=== PATIENT | female | born 2000 | race Two or more races ===

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

== ENCOUNTER 2019-02-27 17:34 | Emergency (ER) | payer OTHER ==
[~2019-02-27] VITALS: Ht 160 cm; Wt 99.8 kg
[~2019-02-27 17:34] MED LIST: NAPR-683 PO
[2019-02-27] MEDS ORDERED: IV NORMAL SALINE 1000ML BAG 1,000 ML IV ONE (18:30)
--- NOTE | 2019-02-27 18:34 | PHYS DOC ---
Past Medical History Past Medical History: No Pertinent History Past Surgical History: No Surgical History Alcohol Use: Occasionally Additional Information: pt states she does not drink currently becuase she is Drug Use: None Adult General Chief Complaint Chief Complaint: ABDOMINAL PAIN IN HPI HPI Patient is a 19 year old who is 14 weeks who presents with with cramping since a fall on Wednesday. Patient states she was getting into her car when she slipped and grabbed the car door which hit her in her belly. She felt fine on Wednesday but Wednesday started having some intermittent cramping. The cramping worsened throughout the week and became constant today. Nothing seems to make her cramping better or worse. She has not tried anything at home to relieve the cramping. She did contact her OB who was unable to see her today and told her to report to the emergency department for evaluation. Patient denies any vaginal bleeding or discharge, lightheadedness, dizziness, or shortness of breath.[] Review of Systems Review of Systems Constitutional: Denies fever or chills [] Eyes: Denies change in visual acuity, redness [] HENT: Denies head or ear pain[] Respiratory: Denies cough or shortness of breath [] Cardiovascular: Denies chest pain or palpitations [] GI: Reports abdominal pain, nausea, and vomiting. Denies bloody stools or diarrhea [] : Denies hematuria, dysuria, or vaginal bleeding[] Musculoskeletal: Reports back pain. Denies joint pain [] Integument: Denies rash or skin lesions [] Neurologic: Denies headache, focal weakness or sensory changes [] Complete systems were reviewed and found to be within normal limits, except as documented in this note. Current Medications Current Medications Current Medications Medications (Trade) Dose Ordered Sig/[place] Start Time Stop Time Status Last Admin Dose Admin Sodium Chloride 1,000 ml @ 1,000 mls/hr 1X ONCE 02/27/19 18:30 02/27/19 19:29 DC 02/27/19 19:29 1,000 MLS/HR Allergies Allergies Allergies Coded Allergies Type Severity Reaction Last Updated Verified No Known Drug Allergies 09/20/17 No Physical Exam Physical Exam Constitutional: Well developed, well nourished, no acute distress, non-toxic appearance. [] HENT: Normocephalic, atraumatic, oropharynx moist Eyes: PERRL, EOMI, conjunctiva normal, no discharge. [] Neck: Normal range of motion, no tenderness, supple, no stridor. 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 [] Back: No tenderness, no CVA tenderness. [] Extremities: No tenderness, ROM intact, no edema. [] Neurologic: Alert and oriented X 3, normal motor function, normal sensory function, no focal deficits noted. [] Psychologic: Affect normal, judgement normal, mood normal. [] Current Patient Data Vital Signs Vital Signs Date Time Temp Pulse Resp B/P (MAP) Pulse Ox O2 Delivery O2 Flow Rate FiO2 02/27/19 21:14 88 17 120/59 (79) Room Air 02/27/19 18:10 98.4 98.4 Lab Values Laboratory Tests Test 02/27/19 19:27 02/27/19 20:40 02/27/19 21:35 White Blood Count 11.5 x10^3/uL (4.0-11.0) H Red Blood Count 4.30 x10^6/uL (3.50-5.40) Hemoglobin 12.0 g/dL (12.0-15.5) Hematocrit 35.6 % (36.0-47.0) L Mean Corpuscular Volume 83 fL (79-100) Mean Corpuscular Hemoglobin 28 pg (25-35) Mean Corpuscular Hemoglobin Concent 34 g/dL (31-37) Red Cell Distribution Width 14.9 % (11.5-14.5) H Platelet Count 242 x10^3/uL (140-400) Neutrophils (%) (Auto) 70 % (31-73) Lymphocytes (%) (Auto) 22 % (24-48) L Monocytes (%) (Auto) 6 % (0-9) Eosinophils (%) (Auto) 1 % (0-3) Basophils (%) (Auto) 0 % (0-3) Neutrophils # (Auto) 8.0 x10^3uL (1.8-7.7) H Lymphocytes # (Auto) 2.6 x10^3/uL (1.0-4.8) Monocytes # (Auto) 0.7 x10^3/uL (0.0-1.1) Eosinophils # (Auto) 0.1 x10^3/uL (0.0-0.7) Basophils # (Auto) 0.0 x10^3/uL (0.0-0.2) Maternal Serum HCG Beta Subunit 48381 mIU/mL (0-5) H Sodium Level 135 mmol/L (136-145) L Potassium Level 3.6 mmol/L (3.5-5.1) Chloride Level 101 mmol/L (98-107) Carbon Dioxide Level 22 mmol/L (21-32) Anion Gap 12 (6-14) Blood Urea Nitrogen 8 mg/dL (7-20) Creatinine 0.5 mg/dL (0.6-1.0) L Estimated GFR (Cockcroft-Gault) 157.3 BUN/Creatinine Ratio 16 (6-20) Glucose Level 86 mg/dL (70-99) Calcium Level 8.9 mg/dL (8.5-10.1) Total Bilirubin 0.1 mg/dL (0.2-1.0) L Aspartate Amino Transferase (AST) 10 U/L (15-37) L Alanine Aminotransferase (ALT) 8 U/L (14-59) L Alkaline Phosphatase 98 U/L (46-116) Total Protein 7.5 g/dL (6.4-8.2) Albumin 2.8 g/dL (3.4-5.0) L Albumin/Globulin Ratio 0.6 (1.0-1.7) L Urine Collection Type Unknown Urine Color Yellow Urine Clarity Cloudy Urine pH 7.5 Urine Specific [place] 1.020 Urine Protein Negative mg/dL (NEG-TRACE) Urine Glucose (UA) Negative mg/dL (NEG) Urine Ketones (Stick) Trace mg/dL (NEG) Urine Blood Negative (NEG) Urine Nitrite Negative (NEG) Urine Bilirubin Negative (NEG) Urine Urobilinogen Dipstick 1.0 mg/dL (0.2 mg/dL) Urine Leukocyte Esterase Negative (NEG) Urine RBC Rare /HPF (0-2) Urine WBC Rare /HPF (0-4) Urine Squamous Epithelial Cells Few /LPF Urine Amorphous Sediment Present /HPF Urine Bacteria Few /HPF (0-FEW) Urine Mucus Slight /LPF Chlamydia DNA Probe Negative (Negative) Neisseria gonorrhoeae DNA Probe Negative (Negative) Laboratory Tests 02/27/19 19:27 Laboratory Tests 02/27/19 19:27 Microbiology 02/27/19 Wet Prep - Final, Complete Microbiology 02/27/19 Wet Prep - Final, Complete EKG EKG [] Radiology/Procedures Radiology/Procedures TECHNIQUE: Ultrasound OB limited. COMPARISON: None FINDINGS: The uterus is anteverted and measures 16.7 x 8.6 x 8.7 cm. Placenta lies anterior in location. Single intrauterine seen with gestation age of 15 weeks 0 days. The biparietal diameter measures 2.83 cm corresponding to gestation age of 15 weeks 1 day. Head circumference measures 11.12 cm corresponding to gestation age of 15 weeks 3 days. Abdominal circumference measures 8.68 cm corresponding to gestation age of 15 weeks 0 days. Femoral length measures 1.45 cm corresponding to gestation age of 14 weeks 2 days. Heart rate 163 bpm. Cephalic presentation the time of scanning. Cervix within normal limits. IMPRESSION: Single viable live intrauterine with estimated gestation age of 15 weeks 0 days and due date of 08/21/2019. Electronically signed by: Khurram Sinha DO (02/27/2019 8:22 PM) [facility] [] Course & Med Decision Making Course & Med Decision Making 19-year-old female who is 14 weeks presenting with intermittent cramping. Patient slipped and fell on Wednesday on shining in her car. Cramping has become more constant since Wednesday. Pertinent Labs and Imaging studies reviewed. Transvaginal ultrasound demonstrated intrauterine . Pelvic exam was unremarkable. Chlamydia/Gonorrhea cultures pending. Patient declined empiric antibiotics. Patient stable for discharge with outpatient follow-up with PCP/ OB. Discussed findings and plan with patient and family, who acknowledge understanding and agreement. (See chart for details) [] Dragon Disclaimer Dragon Disclaimer This electronic medical record was generated, in whole or in part, using a voice recognition dictation system. Departure Departure Impression: Primary Impression: Pelvic pain during Disposition: HOME, SELF-CARE Condition: STABLE Referrals: NO PCP (PCP) Patient Instructions: Abdominal Pain During , [id number] Additional Instructions: Stay hydrated. Use over the counter Tylenol for pain or discomfort. SAURABH CARLSON DO Feb 27, 2019 18:34
[2019-02-27 19:32] LABS: BASO % 0 % (0-3); EOS # 0.1 x10^3/uL (0.0-0.7); EOS % 1 % (0-3); HEMATOCRIT 35.6 % (36.0-47.0); LYMPH # 2.6 x10^3/uL (1.0-4.8); LYMPH % 22 % (24-48); MEAN CORPUSCULAR HEMOGLOBIN 28 pg (25-35); MEAN CORPUSCULAR HGB CONC 34 g/dL (31-37); MEAN CORPUSCULAR VOLUME 83 fL (79-100); MONO # 0.7 x10^3/uL (0.0-1.1); MONO % 6 % (0-9); NEUT % 70 % (31-73); PLATELET COUNT 242 x10^3/uL (140-400); RED CELL DISTRIBUTION WIDTH 14.9 % (11.5-14.5); WHITE BLOOD COUNT 11.5 x10^3/uL (4.0-11.0)
[2019-02-27 19:43] LABS: CALCIUM 8.9 mg/dL (8.5-10.1); CREATININE 0.5 mg/dL (0.6-1.0); GFR 157.3; POTASSIUM 3.6 mmol/L (3.5-5.1)
[2019-02-27 19:49] LABS: ALBUMIN 2.8 g/dL (3.4-5.0); ALBUMIN/GLOBULIN RATIO 0.6 (1.0-1.7); TOTAL BILIRUBIN 0.1 mg/dL (0.2-1.0); TOTAL PROTEIN 7.5 g/dL (6.4-8.2)
--- NOTE | 2019-02-27 20:25 | RAD ---
Indication:cramping after fall TECHNIQUE: Ultrasound OB limited. COMPARISON: None FINDINGS: The uterus is anteverted and measures 16.7 x 8.6 x 8.7 cm. Placenta lies anterior in location. Single intrauterine seen with gestation age of 15 weeks 0 days. The biparietal diameter measures 2.83 cm corresponding to gestation age of 15 weeks 1 day. Head circumference measures 11.12 cm corresponding to gestation age of 15 weeks 3 days. Abdominal circumference measures 8.68 cm corresponding to gestation age of 15 weeks 0 days. Femoral length measures 1.45 cm corresponding to gestation age of 14 weeks 2 days. Heart rate 163 bpm. Cephalic presentation the time of scanning. Cervix within normal limits. IMPRESSION: Single viable live intrauterine with estimated gestation age of 15 weeks 0 days and due date of 08/21/2019. Electronically signed by: Khurram Sinha DO (02/27/2019 8:22 PM) [facility]
[2019-02-27 20:54] LABS: BILIRUBIN,URINE NEGATIVE (NEG); CLARITY,URINE CLOUDY; COLOR,URINE YELLOW; NITRITE,URINE NEGATIVE (NEG); PH,URINE 7.5; PROTEIN,URINE NEGATIVE (NEG-TRACE)
[2019-02-27 20:59] LABS: AMORPHOUS SEDIMENT,UR PRESENT /HPF; BACTERIA,URINE FEW /HPF (0-FEW); RBC,URINE RARE /HPF (0-2); SQUAMOUS EPITHELIAL CELL,UR FEW /LPF; WBC,URINE RARE /HPF (0-4)
[2019-02-27 21:14] VITALS: BP 120/59
[2019-03-01 14:14] LABS: GC PROBE Negative (Negative)
== END 2019-02-27 22:51 | disposition home or self-care (01) ==
LOC: ER 17:37
DX: O21.8 Other vomiting complicating pregnancy (principal); R10.2 Pelvic and perineal pain; M54.9 Dorsalgia, unspecified; R10.12 Left upper quadrant pain; R10.32 Left lower quadrant pain; Z3A.15 15 weeks gestation of pregnancy; W01.198A Fall on same level from slipping, tripping and stumbling with subsequent striking against other object, initial encounter; Y93.89 Activity, other specified; Y92.89 Other specified places as the place of occurrence of the external cause; Y99.8 Other external cause status
CPT/HCPCS: 36415; 76815; 80053; 81001; 84702; 85025; 86901; 87491; 87591; 96360; 99284; J7030; Q0111

== ENCOUNTER 2019-04-02 00:53 | Observation (INO) | payer OTHER ==
[2019-04-02] MEDS ORDERED: ONDANSETRON PF 4 MG/2 ML VIAL. IV PRN (01:00)
[2019-04-02] MEDS ORDERED: CITRIC ACID/SODIUM CITRATE 30 ML SOLUTION. PO ONE (01:00)
[2019-04-02] MEDS ORDERED: MAG HYDROX/ALUMINUM HYD/SIMETH 30 ML ORAL.SUSP PO PRN (01:00)
[2019-04-02] MEDS ORDERED: ACETAMINOPHEN 325 MG TABLET. PO PRN (01:00)
[2019-04-02] MEDS ORDERED: IV RINGERS,LACTATED 1000ML 1,000 ML IV PRN (01:00)
[2019-04-02 01:38] LABS: BILIRUBIN,URINE NEGATIVE (NEG); CLARITY,URINE CLEAR; COLOR,URINE YELLOW; NITRITE,URINE NEGATIVE (NEG); PROTEIN,URINE NEGATIVE (NEG-TRACE); UROBILINOGEN,URINE 0.2 mg/dL (0.2 mg/dL)
[2019-04-02 01:45] LABS: BARBITURATES NEG (NEG); BENZODIAZEPINES NEG (NEG); CANNABINOIDS NEG (NEG); COCAINE NEG (NEG); METHADONE NEG (NEG); OPIATES NEG (NEG); PHENCYCLIDINE NEG (NEG)
[2019-04-02 01:47] LABS: AMPHETAMINE/METHAMPHETAMINE NEG (NEG)
[2019-04-02 01:54] LABS: BASO % 0 % (0-3); EOS # 0.1 x10^3/uL (0.0-0.7); EOS % 1 % (0-3); HEMATOCRIT 33.8 % (36.0-47.0); HEMOGLOBIN 11.4 g/dL (12.0-15.5); LYMPH # 2.9 x10^3/uL (1.0-4.8); LYMPH % 23 % (24-48); MEAN CORPUSCULAR HEMOGLOBIN 28 pg (25-35); MEAN CORPUSCULAR HGB CONC 34 g/dL (31-37); MEAN CORPUSCULAR VOLUME 83 fL (79-100); MONO # 0.8 x10^3/uL (0.0-1.1); MONO % 7 % (0-9); NEUT # 8.6 x10^3uL (1.8-7.7); NEUT % 69 % (31-73); PLATELET COUNT 245 x10^3/uL (140-400); RED BLOOD COUNT 4.07 x10^6/uL (3.50-5.40); RED CELL DISTRIBUTION WIDTH 14.8 % (11.5-14.5); WHITE BLOOD COUNT 12.5 x10^3/uL (4.0-11.0)
[2019-04-02 01:57] LABS: BACTERIA,URINE 0 /HPF (0-FEW); RBC,URINE 0 /HPF (0-2); SQUAMOUS EPITHELIAL CELL,UR FEW /LPF; WBC,URINE 0 /HPF (0-4)
[2019-04-02] MEDS ORDERED: hydrOXYzine IM 50 MG/ML VIAL IM ONE (02:00)
[2019-04-02 02:08] LABS: CREATININE 0.6 mg/dL (0.6-1.0); GFR 127.5; POTASSIUM 3.5 mmol/L (3.5-5.1)
[2019-04-02 02:13] LABS: ALBUMIN/GLOBULIN RATIO 0.7 (1.0-1.7); TOTAL BILIRUBIN 0.2 mg/dL (0.2-1.0); TOTAL PROTEIN 7.2 g/dL (6.4-8.2)
[2019-04-02 02:25] LABS: AMYLASE 49 U/L (25-115); LIPASE 109 U/L (73-393)
--- NOTE | 2019-04-02 04:12 | RAD ---
Examination: Ultrasound abdomen limited HISTORY: History of right upper quadrant pain COMPARISON: None available. Findings: Limited examination due to bowel gas and due to patient body habitus. The liver grossly appears unremarkable. The right lobe of the liver measures 16.9 cm. The common bile duct measures 3.6 mm in transverse dimension. Echogenicities identified in the proximal gallbladder could be sludge or small gallstones. The gallbladder is mildly distended. The gallbladder wall thickness measures 2.6 mm. The right kidney measures 10.3 cm in length. The pancreas is not well-visualized. IMPRESSION: 1. Few echogenicities identified in the proximal gallbladder likely sludge or gallstones. Electronically signed by: Kirk Loja MD (04/02/2019 4:09 AM) [id number]
== END 2019-04-02 04:17 | disposition home or self-care (01) ==
LOC: 3 SO LND 00:53
PROVIDERS: ADMIT Obstetrics & Gynecology; ATTEND Obstetrics & Gynecology
DX: O26.892 Other specified pregnancy related conditions, second trimester (principal); R10.11 Right upper quadrant pain; R10.13 Epigastric pain; M54.9 Dorsalgia, unspecified; Z3A.20 20 weeks gestation of pregnancy
CPT/HCPCS: 36415; 76705; 80053; 80307; 81001; 82150; 83690; 85025; 96372; G0378; G0379; J3410

== ENCOUNTER 2019-07-24 14:55 | Inpatient (IN) | payer OTHER ==
[~2019-07-24] VITALS: Ht 160 cm; Wt 103.0 kg
[~2019-07-24 14:55] MED LIST changes: +ACET325T9 PO; +OXYC1TAB15 PO; +PNV1TABL25 PO
[2019-07-24 15:41] LABS: BILIRUBIN,URINE NEGATIVE (NEG); CLARITY,URINE CLEAR; COLOR,URINE YELLOW; NITRITE,URINE NEGATIVE (NEG); PH,URINE 6.5; PROTEIN,URINE NEGATIVE (NEG-TRACE); UROBILINOGEN,URINE 0.2 mg/dL (0.2 mg/dL)
[2019-07-24 15:54] LABS: SQUAMOUS EPITHELIAL CELL,UR MANY /LPF
[2019-07-24 15:55] LABS: BACTERIA,URINE MODERATE /HPF (0-FEW); RBC,URINE 0 /HPF (0-2); WBC,URINE OCC /HPF (0-4)
[2019-07-24] MEDS ORDERED: IV RINGERS,LACTATED 1000ML 1,000 ML IV SCH (15:58)
[2019-07-24] MEDS ORDERED: IV NORMAL SALINE 1000ML BAG 1,000 ML IV SCH (15:58)
[2019-07-24] MEDS ORDERED: fentaNYL PF VIAL 100 MCG/2 ML VIAL IV PRN ×7 (16:00)
[2019-07-24] MEDS ORDERED: TERBUTALINE 1 MG/ML VIAL. SQ PRN (16:00)
[2019-07-24] MEDS ORDERED: TERBUTALINE 1 MG/ML VIAL. IV PRN (16:00)
[2019-07-24] MEDS ORDERED: ONDANSETRON PF 4 MG/2 ML VIAL. IV PRN (16:00)
[2019-07-24] MEDS ORDERED: OXYTOCIN 30 UNIT/500 ML PREMIX 500 ML IV PRN ×3 (16:00)
[2019-07-24] MEDS ORDERED: BUTORPHANOL 2 MG/ML VIAL. IV PRN ×2 (16:00)
[2019-07-24] MEDS ORDERED: 0.9 % SODIUM CHLORIDE 10 ML DISP.SYRIN. IV PRN (16:00)
[2019-07-24] MEDS ORDERED: LIDOCAINE 1% PF 30 ML VIAL. INJ PRN (16:00)
[2019-07-24] MEDS ORDERED: MAG HYDROX/ALUMINUM HYD/SIMETH 30 ML ORAL.SUSP PO PRN (16:00)
[2019-07-24] MEDS ORDERED: CITRIC ACID/SODIUM CITRATE 30 ML SOLUTION. PO PRN (16:00)
[2019-07-24] MEDS ORDERED: ACETAMINOPHEN 325 MG TABLET. PO PRN (16:00)
[2019-07-24] MEDS ORDERED: DOCUSATE SODIUM 283 MG/5 ML ENEMA. PR PRN (16:00)
[2019-07-24] MEDS ORDERED: miSOPROStol 100 MCG TABLET PO PRN (16:00)
[2019-07-24] MEDS ORDERED: ZOLPIDEM 5 MG TABLET. PO PRN (16:00)
[2019-07-24] MEDS ORDERED: NALBUPHINE 10 MG/ML AMPUL. IV PRN ×2 (16:00)
[2019-07-24] MEDS ORDERED: miSOPROStol 25 MCG TABLET VG PRN (16:00)
--- NOTE | 2019-07-24 16:06 | RAD ---
Biophysical profile 07/24/2019 INDICATION: History of gallstones. Comparison Limited obstetric pelvic ultrasound 02/27/2019 TECHNIQUE: Biophysical profile performed with ultrasound. FINDINGS: breathing movements: 2 motion: 2 tone: 2 Amniotic fluid volume: 0. CANDE measured 2.3 cm. BPD: 8.90 cm compatible gestational age of 36 weeks 0 days Head circumference: 31.1 cm compatible gestational age of 34 weeks 5 days Abdominal circumference: 30.09 cm compatible gestational age of 34 weeks 0 days Femur length: 6.88 cm compatible with gestational age of 35 weeks 2 days Estimated gestational age: 35 weeks 0 days HALIMA: 08/28/2019 IMPRESSION: 1. Biophysical profile score of 6/8 secondary to low amniotic fluid volume. 2. Single intrauterine gestation is identified with estimated gestational age of 35 weeks 0 days. Electronically signed by: Chetna Newsome MD (07/24/2019 4:03 PM) [facility]
[2019-07-24] MEDS ORDERED: AMPICILLIN SODIUM 2 GM in IV NORMAL SALINE 100ML 100 ML IV ONE (16:30)
[2019-07-24] MEDS ORDERED: DINOPROSTONE 10 MG SUPP.VAG VG ONE (16:30)
[2019-07-24 16:40] LABS: BASO # 0.1 x10^3/uL (0.0-0.2); BASO % 1 % (0-3); EOS % 0 % (0-3); HEMATOCRIT 32.6 % (36.0-47.0); HEMOGLOBIN 11.2 g/dL (12.0-15.5); LYMPH # 2.3 x10^3/uL (1.0-4.8); LYMPH % 22 % (24-48); MEAN CORPUSCULAR HEMOGLOBIN 28 pg (25-35); MEAN CORPUSCULAR HGB CONC 34 g/dL (31-37); MEAN CORPUSCULAR VOLUME 81 fL (79-100); MONO # 0.8 x10^3/uL (0.0-1.1); MONO % 8 % (0-9); NEUT # 7.4 x10^3/uL (1.8-7.7); NEUT % 70 % (31-73); PLATELET COUNT 232 x10^3/uL (140-400); RED BLOOD COUNT 4.01 x10^6/uL (3.50-5.40); RED CELL DISTRIBUTION WIDTH 14.5 % (11.5-14.5); WHITE BLOOD COUNT 10.6 x10^3/uL (4.0-11.0)
[2019-07-24] MEDS: IV RINGERS,LACTATED 1000ML 1,000 ML IV SCH (16:57)
[2019-07-24 17:30] VITALS: BP 143/74
[2019-07-25] MEDS: IV RINGERS,LACTATED 1000ML 1,000 ML IV SCH ×2 (05:57→19:59)
[2019-07-25] MEDS: AMPICILLIN SODIUM 1 GM in IV NORMAL SALINE 50ML 50 ML IV SCH ×4 (10:42→23:09)
[2019-07-25] MEDS: fentaNYL PF VIAL 100 MCG/2 ML VIAL IV PRN ×2 (14:33→16:06)
[2019-07-25] MEDS ORDERED: ROPIVacaine 0.2% PF 10 ML VIAL. ONE ×2 (19:29→20:00)
[2019-07-25] MEDS ORDERED: L&D EPIDURAL SYRINGE 50 ML ONE ×2 (19:30→23:11)
[2019-07-25] MEDS ORDERED: L&D EPIDURAL 50 ML SYRINGE. ONE (20:00)
[2019-07-25] MEDS ORDERED: IV RINGERS,LACTATED 1000ML 1,000 ML IV SCH (23:23)
[2019-07-25] MEDS ORDERED: ROPIVacaine 0.2% IN 0.9%NACL PF 40 MG/20 ML DISP.SYRIN. EPID PRN (23:30)
[2019-07-25] MEDS ORDERED: NALOXONE 0.4 MG/ML VIAL. IV PRN (23:30)
[2019-07-25] MEDS ORDERED: fentaNYL PF VIAL 100 MCG/2 ML VIAL EPID PRN (23:30)
[2019-07-25] MEDS ORDERED: BUPIVACAINE MPF 0.25% 30 ML VIAL. EPID PRN (23:30)
[2019-07-25] MEDS ORDERED: L&D EPIDURAL SYRINGE 50 ML EPID PRN (23:30)
[2019-07-26] MEDS ORDERED: MMR per PROTOCOL. MC PRN (00:23)
[2019-07-26] MEDS ORDERED: IBUPROFEN 400 MG TABLET. PO PRN (00:30)
[2019-07-26] MEDS ORDERED: HYDROCORTISONE 1% TOPICAL OINTMENT 30GM TUBE. TP PRN (00:30)
[2019-07-26] MEDS ORDERED: 0.9 % SODIUM CHLORIDE 10 ML DISP.SYRIN. IV PRN (00:30)
[2019-07-26] MEDS ORDERED: MAG HYDROX/ALUMINUM HYD/SIMETH 30 ML ORAL.SUSP PO PRN (00:30)
[2019-07-26] MEDS ORDERED: PHENYLEPH/MINERAL OIL/PETROLAT RECTAL OINTMENT TUBE. RC PRN (00:30)
[2019-07-26] MEDS ORDERED: ACETAMINOPHEN 325 MG TABLET. PO PRN (00:30)
[2019-07-26] MEDS ORDERED: diphenhydrAMINE HCL 25 MG CAPSULE PO PRN (00:30)
[2019-07-26] MEDS ORDERED: BENZOCAINE 20% TOPICAL AEROSOL SPRAY 57GM CAN. TP PRN (00:30)
[2019-07-26] MEDS ORDERED: MAGNESIUM HYDROXIDE 2,400 MG/30 ML ORAL.SUSP. PO PRN (00:30)
[2019-07-26] MEDS ORDERED: OXYTOCIN 30 UNIT/500 ML PREMIX 500 ML IV PRN (00:30)
[2019-07-26] MEDS ORDERED: ZOLPIDEM 5 MG TABLET. PO PRN (00:30)
[2019-07-26] MEDS ORDERED: SIMETHICONE 80 MG TAB.CHEW PO PRN (00:30)
--- NOTE | 2019-07-26 00:34 | PDOC1 ---
OB - History Hx of Present Ultrasounds: Normal mid trimester US Abnormal Ultrasound Findings: Gall stones Obstetrical Complications: Other (Oligo, gall stones) Medical Complications: Other (gall stones) Past Family/Social History * Past Medical, Surgical, Family and Obstetric Histories reviewed from chart. Blood Type: A+ Rubella: Immune RPR/VDRL: Negative GBS Status: Unknown HBsAG: Negative OB - Chief Complaint & HPI Date of Admission: Date of Admission: Jul 24, 2019 at 16:12 Chief Complaint/History : 3 Para: 0 EDC: Aug 21, 2019 Reason for admission: induction of labor Indication for induction: other (Oligo) Admission Nurse Assessment Rev: Yes OB - Admission Exam Physical Exam Vitals: VS - Last 72 Hours, by Label Date Time Temp Pulse Resp B/P (MAP) Pulse Ox O2 Delivery O2 Flow Rate FiO2 07/25/19 23:32 18 Room Air 07/25/19 18:03 20 Room Air 07/25/19 16:06 20 07/25/19 14:33 18 Room Air 07/24/19 17:30 97.7 83 20 143/74 (97) 97 Room Air 97.7 HEENT: Normal, Nasal Mucosa Normal, Oropharynx Normal, Moist Membranes, Fontanelles Normal Heart: Regular Rate Lungs: Clear, Equal Abdomen: Gravid Extremities: Clubbing Reflexes: Normal Cervical Dilatation: 1cm Effacement: 0% Membranes: Intact Heart Rate: Normal Accelerations: Accelerations Present Decelerations: No decelerations Short Term Variability: Present Contractions on Admission: >10 Minutes Apart Intensity: Mild Assessment/Plan Assessment/Plan 36 week IUP oligo gall stones MINH RAMÍREZ MD Jul 26, 2019 00:34
--- NOTE | 2019-07-26 00:36 | PDOC ---
VAGINAL DELIVERY DATE DATE: 07/26/19 TIME: 00:35 : 3 EDC: Aug 21, 2019 VAGINAL DELIVERY: VTX VACCUM ASSISTED: No PLACENTA: Spontaneous SEX: Male WEIGHT 5#2oz Nuchal Cord: Yes, Times 1, Loose Amniotic Fluid: Clear PAIN: Epidural EPISIOTOMY: No EXTENSION: Yes EBL 300cc COMPLICATIONS None CONDITION Stable Signs of Intrauterine Infectio: None Shoulder Dystocia: No DIAGNOSIS CSVD MINH RAMÍREZ MD Jul 26, 2019 00:36
[2019-07-26 02:50] VITALS: BP 119/58
[2019-07-26 04:10] VITALS: BP 109/52
[2019-07-26] MEDS ORDERED: IBUPROFEN 400 MG TABLET. PO SCH (06:00)
[2019-07-26] MEDS ORDERED: FERROUS SULFATE 325 MG TABLET. PO SCH (08:00)
[2019-07-26 09:30] VITALS: BP 95/43
--- NOTE | 2019-07-26 13:48 | NUR ---
FACULTY CO-SIGN I have reviewed the documentation by nursing center tutor:Apple Le
[2019-07-26 14:41] VITALS: BP 111/70
[2019-07-26 18:02] VITALS: BP 124/57
[2019-07-26] MEDS: IBUPROFEN 400 MG TABLET. PO PRN (22:06)
[2019-07-26 22:10] VITALS: BP 120/76
[2019-07-27] MEDS: IBUPROFEN 400 MG TABLET. PO PRN ×2 (04:09→16:54)
[2019-07-27 06:26] VITALS: BP 117/72
[2019-07-27 11:39] VITALS: BP 122/68
--- NOTE | 2019-07-27 15:34 | PDOC ---
Provider Note Provider Note Doing well VSS uterus NTTP FU in AM MINH RAMÍREZ MD Jul 27, 2019 15:34
[2019-07-27] MEDS: HYDROcodone/APAP 5/325MG 1 TAB TABLET PO PRN ×2 (18:06→22:24)
[2019-07-27 18:24] VITALS: BP 110/72
[2019-07-27 22:00] VITALS: BP 123/72
[2019-07-28 05:00] VITALS: BP 104/57
--- NOTE | 2019-07-28 08:45 | PATHOLOGY ---
[facility] Accession Number: [id number] . 01 Material submitted: . placenta - PLACENTA AND CORD . 01 Clinical history: . IUP EDC: 08/21/2019 : 3 para: 0 Oligohydramnios Gestational age 36.1 weeks . 02 Diagnosis: 398 gram late placenta of an estimated 36 weeks gestation with attached membranes and umbilical cord: - Retromembranous hematoma. LBQ/07/27/2019 . 02 Comment: There is no evidence of an acute chorioamnionitis or villitis. There are no infarcts. (JPM/db; 07/27/2019) . 02 Electronically signed: . Benedicto Jc MD, Pathologist NPI- [id number] . 01 Gross description: . The specimen is received in formalin labeled "Chelsie Ortiz, placenta" and consists of an oval jaramillo placenta measuring 15.5 x 12.0 x 3.0 cm and weighing 398 g after removal of membranes and umbilical cord. The membranes are pink-blue, thin, and translucent with abundant attached blood clot (13.0 x 6.0 cm). The surface is glistening blue-junior and well vascularized with an eccentrically inserted 3 vessel umbilical cord, 3.3 from edge. The cord measures 47.0 cm in length and up to 1.6 cm in diameter and is pérez to focally green and edematous. The maternal surface shows complete and intact cotyledons. Sectioning reveals a maroon-red and spongy parenchyma with no gross lesions. Nurse'S Assistant sections are submitted as follows: . A1: Periphery and membrane roll A2: Umbilical cord A3-A4: Full-thickness section A5: Membranes with attached clot (SDY; 07/26/2019) SYU/SYU . 02 Pathologist provided ICD-10: O43.893, Z37.0, Z3A.36 . 02 CPT . 370293 Specimen Comment: A courtesy copy of this report has been sent to Specimen Comment: [phone]. Specimen Comment: Report sent to Performed at: 01 [facility] [address], [place] [id number] MD Demarco Felix MD Phone: [phone] Performed at: 02 [facility] [address] [place], [place] [id number] MD Benedicto Jc MD Phone: [phone]
[2019-07-28 11:00] VITALS: BP 123/72
--- NOTE | 2019-07-28 13:11 | PDOC3 ---
OB DISCHARGE SUMMARY DATE OF ADMISSION: 07/26/19 DATE OF DISCHARGE: 07/28/19 REASON FOR ADMISSION: Induction of labor PROCEDURES: Mgmt of Med Complications, Mgmt of OB Complications INTRAPARTUM PROCEDURES: Spontanous Vag Deliv PROCEDURES: None OPERATIONS: None PROBLEM LIST AT DISCHARGE Problems Medical Problems: (1) Gall stones Status: Chronic DISCHARGE DIAGNOSIS: Term Delivered DISCHARGE INFORMATION: Activity, Diet HOSPITAL COURSE Unremarkable CONDITION AT DISCHARGE Stable MINH RAMÍREZ MD Jul 28, 2019 13:10
[2019-07-28] MEDS ORDERED: NAPR-514 PO (13:12)
[2019-07-28] MEDS ORDERED: OXYC1TAB15 PO (13:12)
[2019-07-28 14:09] VITALS: BP 135/88
--- NOTE | 2019-07-28 14:13 | NUR ---
Discharge Discharge instructions given to patient at this time, no questions or concerns noted. To follow up in [address] Pham then 6 weeks at [facility].
== END 2019-07-28 14:13 | disposition home or self-care (01) | DRG 806 ==
LOC: 3 SO LND 14:55 → OBSVTOIN 16:12 → 3 NORTH 07-26 02:50
PROVIDERS: ADMIT Specialist; ATTEND Specialist
PROC: 10E0XZZ Delivery of Products of Conception, External Approach (ICD-10-PCS; principal; 2019-07-26)
PROC: 3E0R3BZ Introduction of Anesthetic Agent into Spinal Canal, Percutaneous Approach (ICD-10-PCS; 2019-07-26)
PROC: 00HU33Z Insertion of Infusion Device into Spinal Canal, Percutaneous Approach (ICD-10-PCS; 2019-07-26)
DX: O69.81X0 Labor and delivery complicated by cord around neck, without compression, not applicable or unspecified (principal); O41.03X0 Oligohydramnios, third trimester, not applicable or unspecified; Z37.0 Single live birth; O99.62 Diseases of the digestive system complicating childbirth; K80.20 Calculus of gallbladder without cholecystitis without obstruction; Z3A.36 36 weeks gestation of pregnancy
CPT/HCPCS: 36415; 76819; 81001; 85014; 85025; 86592; 86850; 86900; 86901; 87086; 88307; G0379; J0290; J2405; J2590; J2795; J3010; J7120; G0378

== ENCOUNTER 2019-08-01 19:37 | Emergency (ER) | payer OTHER ==
[~2019-08-01] VITALS: Ht 160 cm; Wt 103.0 kg
[~2019-08-01 19:37] MED LIST changes: +NAPR-514 PO
[2019-08-01 22:45] VITALS: BP 121/80
[2019-08-01 22:57] LABS: BILIRUBIN,URINE NEGATIVE (NEG); CLARITY,URINE CLEAR; COLOR,URINE YELLOW; NITRITE,URINE NEGATIVE (NEG); PROTEIN,URINE NEGATIVE (NEG-TRACE); UROBILINOGEN,URINE 0.2 mg/dL (0.2 mg/dL)
[2019-08-01 23:04] LABS: AMPHETAMINE/METHAMPHETAMINE NEG (NEG); BARBITURATES NEG (NEG); BENZODIAZEPINES NEG (NEG); CANNABINOIDS NEG (NEG); COCAINE NEG (NEG); METHADONE NEG (NEG); OPIATES NEG (NEG); PHENCYCLIDINE NEG (NEG)
[2019-08-01 23:06] LABS: BACTERIA,URINE MOD /HPF (0-FEW); SQUAMOUS EPITHELIAL CELL,UR OCC /LPF
[2019-08-01] MEDS ORDERED: IV NORMAL SALINE 1000ML BAG 1,000 ML IV ONE (23:30)
[2019-08-01] MEDS ORDERED: fentaNYL PF VIAL 100 MCG/2 ML VIAL IV ONE (23:30)
[2019-08-01 23:40] LABS: BASO # 0.1 x10^3/uL (0.0-0.2); BASO % 1 % (0-3); EOS # 0.3 x10^3/uL (0.0-0.7); EOS % 4 % (0-3); HEMATOCRIT 35.5 % (36.0-47.0); HEMOGLOBIN 12.1 g/dL (12.0-15.5); LYMPH # 2.9 x10^3/uL (1.0-4.8); LYMPH % 34 % (24-48); MEAN CORPUSCULAR HEMOGLOBIN 28 pg (25-35); MEAN CORPUSCULAR HGB CONC 34 g/dL (31-37); MEAN CORPUSCULAR VOLUME 81 fL (79-100); MONO # 0.5 x10^3/uL (0.0-1.1); MONO % 6 % (0-9); NEUT # 4.7 x10^3/uL (1.8-7.7); NEUT % 56 % (31-73); PLATELET COUNT 314 x10^3/uL (140-400); RED BLOOD COUNT 4.36 x10^6/uL (3.50-5.40); RED CELL DISTRIBUTION WIDTH 14.8 % (11.5-14.5); WHITE BLOOD COUNT 8.4 x10^3/uL (4.0-11.0)
[2019-08-02 00:17] LABS: CALCIUM 8.8 mg/dL (8.5-10.1); CREATININE 0.8 mg/dL (0.6-1.0); GFR 91.4; POTASSIUM 3.6 mmol/L (3.5-5.1)
[2019-08-02 00:23] LABS: ALBUMIN 2.8 g/dL (3.4-5.0); ALBUMIN/GLOBULIN RATIO 0.6 (1.0-1.7); TOTAL BILIRUBIN 0.2 mg/dL (0.2-1.0); TOTAL PROTEIN 7.3 g/dL (6.4-8.2)
--- NOTE | 2019-08-02 00:27 | RAD ---
STUDY: Realtime grayscale and color Doppler ultrasonography of the right upper quadrant INDICATION: Right upper quadrant pain. Provided history of gallstones. COMPARISON: Most recently on 06/28/2019. TECHNIQUE: Real-time grayscale and color Doppler sonographic evaluation of the right upper quadrant. Findings: The pancreas is poorly visualized. No discrete abnormality of the adequately evaluated portion. The inferior vena cava is unremarkable. No focal hepatic parenchymal abnormality. Somewhat increased hepatic echotexture is a nonspecific finding but can be seen in the setting of hepatic steatosis. The liver measures approximately 16 cm in length. The gallbladder is contracted. The gallbladder wall measures approximately 3 mm in length. Gallstones are noted. No sonographic Cohen's sign. Normal caliber of the common bile duct measuring 0.4 cm. The right kidney measures 11 cm in length with normal cortical thickness and echogenicity. No hydronephrosis or visualized nephrolithiasis. Impression: 1. Contracted gallbladder with normal wall thickness. Gallstones are present. No sonographic Cohen's sign was observed by the traffic signal technician. No definite findings to suggest acute cholecystitis. 2. Increased hepatic echogenicity as can be seen with hepatic steatosis. Electronically signed by: RANDY CAGLE MD (08/02/2019 12:24 AM) [facility]
[2019-08-02] MEDS ORDERED: cefTRIAXone IV Push 1 GM VIAL. IVP ONE (00:30)
[2019-08-02] MEDS ORDERED: CEPH500T PO (01:13)
[2019-08-02] MEDS ORDERED: HYDR-3164 PO (01:13)
--- NOTE | 2019-08-02 01:13 | PHYS DOC ---
Past Medical History Past Medical History: No Pertinent History Past Surgical History: No Surgical History Alcohol Use: Occasionally Drug Use: None Adult General Chief Complaint Chief Complaint: ABDOMINAL PAIN [facility] HPI Patient is a 19 year old female who presents with a sharp intermittent 8 out of 10 right upper quadrant abdominal pain that has been going on for months during her . She delivered 6 days ago. She states she was informed she has gallstones and they can remove them as soon as she has the baby. She states she had a baby 6 days ago and she is here to have a gallstones removed. Patient denies any nausea, vomiting. Denies any diarrhea. She describes the pain as sharp worse on eating certain foods. She states she had pork today which exacerbated her pain. She follows up with Dr. Gonzales general surgery Review of Systems Review of Systems Constitutional: Denies fever or chills [] Eyes: Denies change in visual acuity, redness, or eye pain [] HENT: Denies nasal congestion or sore throat [] Respiratory: Denies cough or shortness of breath [] Cardiovascular: No additional information not addressed in HPI [] GI: Reports right upper quadrant abdominal pain, denies nausea, vomiting, bloody stools or diarrhea [] : Denies dysuria or hematuria [] Musculoskeletal: Denies back pain or joint pain [] Integument: Denies rash or skin lesions [] Neurologic: Denies headache, focal weakness or sensory changes [] All other systems were reviewed and found to be within normal limits, except as documented in this note. Current Medications Current Medications Current Medications Medications (Trade) Dose Ordered Sig/[place] Start Time Stop Time Status Last Admin Dose Admin Ceftriaxone Sodium (Rocephin) 1 gm 1X ONCE 08/02/19 00:30 08/02/19 00:31 DC 08/02/19 00:55 1 GM Fentanyl Citrate (Fentanyl 2ml Vial) 50 mcg 1X ONCE 08/01/19 23:30 08/01/19 23:31 DC 08/01/19 23:49 50 MCG Sodium Chloride 1,000 ml @ 1,000 mls/hr 1X ONCE 08/01/19 23:30 08/02/19 00:29 DC 08/01/19 23:49 1,000 MLS/HR Allergies Allergies Allergies Coded Allergies Type Severity Reaction Last Updated Verified No Known Drug Allergies 09/20/17 No Physical Exam Physical Exam Constitutional: Well developed, well nourished, no acute distress, non-toxic appearance. [] HENT: Normocephalic, atraumatic, bilateral external ears normal, oropharynx moist, no oral exudates, nose normal. [] Eyes: PERRLA, EOMI, conjunctiva normal, no discharge. [] Neck: Normal range of motion, no tenderness, supple, no stridor. [] Cardiovascular:Heart rate regular rhythm, no murmur [] Lungs & Thorax: Bilateral breath sounds clear to auscultation [] Abdomen: Bowel sounds normal, soft, tenderness on palpation to the right upper quadrant with negative Cohen sign, no right lower quadrant tenderness, no masses, no pulsatile masses. [] Skin: Warm, dry, no erythema, no rash. [] Back: No tenderness, no CVA tenderness. [] Extremities: No tenderness, no cyanosis, no clubbing, ROM intact, no edema. [] Neurologic: Alert and oriented X 3, normal motor function, normal sensory function, no focal deficits noted. [] Psychologic: Affect normal, judgement normal, mood normal. [] Current Patient Data Vital Signs Vital Signs Date Time Temp Pulse Resp B/P (MAP) Pulse Ox O2 Delivery O2 Flow Rate FiO2 08/01/19 23:49 Room Air 08/01/19 22:45 98.5 62 17 121/80 (94) 97 98.5 Lab Values Laboratory Tests Test 08/01/19 19:35 08/01/19 19:50 08/01/19 23:30 08/01/19 23:55 Urine Color Yellow Urine Clarity Clear Urine pH 6.0 Urine Specific [place] 1.020 Urine Protein Negative mg/dL (NEG-TRACE) Urine Glucose (UA) Negative mg/dL (NEG) Urine Ketones (Stick) Negative mg/dL (NEG) Urine Blood Large (NEG) Urine Nitrite Negative (NEG) Urine Bilirubin Negative (NEG) Urine Urobilinogen Dipstick 0.2 mg/dL (0.2 mg/dL) Urine Leukocyte Esterase Moderate (NEG) Urine RBC 3-5 /HPF (0-2) Urine WBC 5-10 /HPF (0-4) Urine Squamous Epithelial Cells Occ /LPF Urine Bacteria Mod /HPF (0-FEW) Urine Mucus Mod /LPF Urine Opiates Screen Neg (NEG) Urine Methadone Screen Neg (NEG) Urine Barbiturates Neg (NEG) Urine Phencyclidine Screen Neg (NEG) Urine Amphetamine/Methamphetamine Neg (NEG) Urine Benzodiazepines Screen Neg (NEG) Urine Cocaine Screen Neg (NEG) Urine Cannabinoids Screen Neg (NEG) Urine Ethyl Alcohol Neg (NEG) POC Urine HCG, Qualitative Hcg negative (Negative) White Blood Count 8.4 x10^3/uL (4.0-11.0) Red Blood Count 4.36 x10^6/uL (3.50-5.40) Hemoglobin 12.1 g/dL (12.0-15.5) Hematocrit 35.5 % (36.0-47.0) L Mean Corpuscular Volume 81 fL (79-100) Mean Corpuscular Hemoglobin 28 pg (25-35) Mean Corpuscular Hemoglobin Concent 34 g/dL (31-37) Red Cell Distribution Width 14.8 % (11.5-14.5) H Platelet Count 314 x10^3/uL (140-400) Neutrophils (%) (Auto) 56 % (31-73) Lymphocytes (%) (Auto) 34 % (24-48) Monocytes (%) (Auto) 6 % (0-9) Eosinophils (%) (Auto) 4 % (0-3) H Basophils (%) (Auto) 1 % (0-3) Neutrophils # (Auto) 4.7 x10^3/uL (1.8-7.7) Lymphocytes # (Auto) 2.9 x10^3/uL (1.0-4.8) Monocytes # (Auto) 0.5 x10^3/uL (0.0-1.1) Eosinophils # (Auto) 0.3 x10^3/uL (0.0-0.7) Basophils # (Auto) 0.1 x10^3/uL (0.0-0.2) Sodium Level 139 mmol/L (136-145) Potassium Level 3.6 mmol/L (3.5-5.1) Chloride Level 104 mmol/L (98-107) Carbon Dioxide Level 25 mmol/L (21-32) Anion Gap 10 (6-14) Blood Urea Nitrogen 17 mg/dL (7-20) Creatinine 0.8 mg/dL (0.6-1.0) Estimated GFR (Cockcroft-Gault) 91.4 BUN/Creatinine Ratio 21 (6-20) H Glucose Level 83 mg/dL (70-99) Calcium Level 8.8 mg/dL (8.5-10.1) Total Bilirubin 0.2 mg/dL (0.2-1.0) Aspartate Amino Transferase (AST) 24 U/L (15-37) Alanine Aminotransferase (ALT) 29 U/L (14-59) Alkaline Phosphatase 138 U/L (46-116) H Total Protein 7.3 g/dL (6.4-8.2) Albumin 2.8 g/dL (3.4-5.0) L Albumin/Globulin Ratio 0.6 (1.0-1.7) L Lipase 132 U/L (73-393) Ethyl Alcohol Level < 10 mg/dL (0-10) Laboratory Tests 08/01/19 23:30 Laboratory Tests 08/01/19 23:55 EKG EKG [] Radiology/Procedures Radiology/Procedures []PROCEDURE: ABDOMEN LTD STUDY: Realtime grayscale and color Doppler ultrasonography of the right upper quadrant INDICATION: Right upper quadrant pain. Provided history of gallstones. COMPARISON: Most recently on 06/28/2019. TECHNIQUE: Real-time grayscale and color Doppler sonographic evaluation of the right upper quadrant. Findings: The pancreas is poorly visualized. No discrete abnormality of the adequately evaluated portion. The inferior vena cava is unremarkable. No focal hepatic parenchymal abnormality. Somewhat increased hepatic echotexture is a nonspecific finding but can be seen in the setting of hepatic steatosis. The liver measures approximately 16 cm in length. The gallbladder is contracted. The gallbladder wall measures approximately 3 mm in length. Gallstones are noted. No sonographic Cohen's sign. Normal caliber of the common bile duct measuring 0.4 cm. The right kidney measures 11 cm in length with normal cortical thickness and echogenicity. No hydronephrosis or visualized nephrolithiasis. Impression: 1. Contracted gallbladder with normal wall thickness. Gallstones are present. No sonographic Cohen's sign was observed by the orthodontic lab technician. No definite findings to suggest acute cholecystitis. 2. Increased hepatic echogenicity as can be seen with hepatic steatosis. Electronically signed by: RANDY CAGLE MD (08/02/2019 12:24 AM) [facility] DICTATED and SIGNED BY: RANDY CAGLE MD DATE: 08/02/19 0024 Course & Med Decision Making Course & Med Decision Making Pertinent Labs and Imaging studies reviewed. (See chart for details) This is a 19-year-old female patient who presents to the ED today with right upper quadrant abdominal pain for months, she was and was informed as soon as she has her baby she can have her gallstones removed. She had a baby 6 days ago and is in the ED today requesting to have her gallstones removed. CBC with normal WBC, CMP with no acute findings. Urine analysis is noted for UTI and given Rocephin IV in the ED, discharged on cephalexin. Right upper quadrant abdominal ultrasound noted for gallstones no cholecystitis. Patient was discharged to home. Instructed to contact the general surgeon and follow-up as an outpatient. Dragon Disclaimer Dragon Disclaimer This electronic medical record was generated, in whole or in part, using a voice recognition dictation system. Departure Departure Impression: Primary Impression: Gall stones Additional Impression: UTI (urinary tract infection) Disposition: HOME, SELF-CARE Condition: STABLE Referrals: UNKNOWN PCP NAME (PCP) PIEDAD GONZALES MD Call your General surgeon and set up a follow-up appointment as soon as you can Patient Instructions: Cholelithiasis, [id number] Additional Instructions: You were seen in the emergency room and noted to have gallstones and urinary tract infection, we put you on antibiotics, ensure you complete them. Call the general surgeon tomorrow and follow-up with him. Take the prescribed pain medicine as needed for pain., Scripts Hydrocodone/Apap 5-325 (NORCO 5-325 TABLET) 1 Each Tablet 1 TAB PO Q6HRS, #12 TAB Prov: FERNANDO WHITE APRN 08/02/19 Cephalexin (CEPHALEXIN) 500 Mg Tablet 1 TAB PO BID, #14 TAB Prov: FERNANDO WHITE APRN 08/02/19 Problem Qualifiers Additional Impression: UTI (urinary tract infection) Urinary tract infection type: site unspecified Hematuria presence: without hematuria Qualified Codes: N39.0 - Urinary tract infection, site not specified FERNANDO WHITE APRN Aug 02, 2019 01:13
== END 2019-08-02 01:34 | disposition home or self-care (01) ==
LOC: ER 19:37
DX: O99.63 Diseases of the digestive system complicating the puerperium (principal); O86.20 Urinary tract infection following delivery, unspecified
CPT/HCPCS: 36415; 76705; 80053; 80307; 81001; 81025; 83690; 85025; 96374; 96375; 99285; G0480; J0696; J3010; J7030

== ENCOUNTER 2019-08-04 09:40 | Day surgery (SDC) | payer OTHER ==
[~2019-08-04] VITALS: Ht 160 cm; Wt 99.8 kg
--- NOTE | 2019-08-04 07:45 | HP ---
ADMIT DATE: 08/04/2019 HISTORY OF PRESENT ILLNESS: The patient has had right upper quadrant pain and proven to have gallstones some months ago. She was and just delivered 5-6 days ago. She was induced because of the gallbladder difficulty. She was known to have gallstones and therefore had been treated for that during the . The patient now comes in having been seen in the Emergency Room for right upper quadrant pain with nausea and vomiting. Had a sonogram done on 08/01/2019 and review of that with the radiologist showed gallstones. No evidence of acute cholecystitis. Past medical history shows normal childhood diseases. No surgeries. She has noted once, 19 years old, delivered 5 days ago. Has no allergies and no other illnesses to her knowledge and takes no takes no medicine. FAMILY HISTORY: Noncontributory. SOCIAL HISTORY: She does not smoke, drink or use drugs or illicit problems and does not have any use of unlawful medicine. REVIEW OF SYSTEMS: Negative except for postprandial and fatty food intolerance with right upper quadrant pain with gas and bloating. She also gets nauseated. PHYSICAL EXAMINATION: GENERAL: Shows a well-developed, normally developed female in no acute distress except for some abdominal discomfort. HEAD, EARS, EYES, NOSE AND THROAT: Grossly normal. Spoke normally. CHEST: Clear bilaterally to auscultation. HEART: Had no murmurs, heaves, friction rubs or thrills and had a rate of 75 beats per minute and it was regular. ABDOMEN: Soft throughout except for the right upper quadrant where there was tenderness to deep palpation. She did not have guarding, but did have tenderness there. There was no rebound. Abdomen was otherwise soft with no organomegaly or other problems. PELVIC: Not done. EXTREMITIES: Grossly normal. IMPRESSION: Chronic cholecystitis and cholelithiasis. PIEDAD GONZALES MD DR: MELISSA/ronak JOB#: [id number] / [id number]
[~2019-08-04 09:40] MED LIST changes: +BUPIVACAINE-EPI 0.5%-1:200000 MPF 30 ML VIAL. INJ ONE; +CEPH500T PO; +HYDR-3164 PO; +HYDROmorphone 2 MG/ML VIAL IV PRN; +LIDOCAINE 1% PF 2 ML VIAL. ID PRN; +MORPHINE SULFATE 2 MG/ML VIAL. IV PRN; +ONDANSETRON PF 4 MG/2 ML VIAL. IV PRN; +PROCHLORPERAZINE 10 MG/2 ML VIAL. IV PRN; +fentaNYL PF VIAL 100 MCG/2 ML VIAL IV PRN
[2019-08-04] MEDS ORDERED: LIDOCAINE 2% PF 5 ML VIAL. ONE (09:54)
[2019-08-04] MEDS ORDERED: PROPOFOL 20 ML IV ONE (09:54)
[2019-08-04] MEDS ORDERED: ROCURONIUM 50 MG/5 ML VIAL. ONE ×2 (09:55→13:03)
[2019-08-04] MEDS ORDERED: fentaNYL PF VIAL 100 MCG/2 ML VIAL ONE ×2 (09:55→12:36)
[2019-08-04] MEDS ORDERED: SUCCINYLCHOLINE 200 MG/10 ML VIAL. ONE (09:55)
[2019-08-04] MEDS ORDERED: SCOPOLAMINE 1.5MG PATCH. TD ONE (10:30)
[2019-08-04] MEDS: IV RINGERS,LACTATED 1000ML 1,000 ML IV SCH ×2 (10:33→15:24)
[2019-08-04 11:08] LABS: BASO % 1 % (0-3); EOS # 0.3 x10^3/uL (0.0-0.7); EOS % 3 % (0-3); HEMATOCRIT 36.6 % (36.0-47.0); HEMOGLOBIN 12.4 g/dL (12.0-15.5); LYMPH # 2.7 x10^3/uL (1.0-4.8); LYMPH % 35 % (24-48); MEAN CORPUSCULAR HEMOGLOBIN 28 pg (25-35); MEAN CORPUSCULAR HGB CONC 34 g/dL (31-37); MEAN CORPUSCULAR VOLUME 82 fL (79-100); MONO # 0.5 x10^3/uL (0.0-1.1); MONO % 6 % (0-9); NEUT # 4.1 x10^3/uL (1.8-7.7); NEUT % 55 % (31-73); PLATELET COUNT 307 x10^3/uL (140-400); RED BLOOD COUNT 4.46 x10^6/uL (3.50-5.40); RED CELL DISTRIBUTION WIDTH 14.6 % (11.5-14.5); WHITE BLOOD COUNT 7.5 x10^3/uL (4.0-11.0)
[2019-08-04] MEDS ORDERED: IOHEXOL 300 MG/ML 50 ML VIAL. ONE (11:09)
[2019-08-04 11:21] LABS: CREATININE 0.7 mg/dL (0.6-1.0); GFR 106.7; POTASSIUM 4.1 mmol/L (3.5-5.1)
[2019-08-04 11:22] LABS: PROTHROMBIN TIME PATIENT 13.2 SEC (11.7-14.0)
[2019-08-04 11:25] LABS: ALBUMIN 3.1 g/dL (3.4-5.0); ALBUMIN/GLOBULIN RATIO 0.7 (1.0-1.7); TOTAL BILIRUBIN 0.2 mg/dL (0.2-1.0); TOTAL PROTEIN 7.8 g/dL (6.4-8.2)
--- NOTE | 2019-08-04 11:35 | PDOC ---
SURGICAL PROGRESS NOTE Subjective Op Note: Surgeon..........................................................Sami Pre and post op diag.......................................chronic cholecystitis and cholelithiasis Anesthesia....................................................general Procedure......................................................lap hui with grams Blood loss.....................................................20cc Fluids...........................................................see anesthesia sheet Drains..........................................................none Condition......................................................satisfactory Vital Signs Vital Signs Date Time Temp Pulse Resp B/P (MAP) Pulse Ox O2 Delivery O2 Flow Rate FiO2 08/04/19 10:18 98.2 58 20 96 98.2 08/04/19 10:15 102/41 Room Air Labs Laboratory Tests Test 08/04/19 10:33 White Blood Count 7.5 x10^3/uL (4.0-11.0) Red Blood Count 4.46 x10^6/uL (3.50-5.40) Hemoglobin 12.4 g/dL (12.0-15.5) Hematocrit 36.6 % (36.0-47.0) Mean Corpuscular Volume 82 fL (79-100) Mean Corpuscular Hemoglobin 28 pg (25-35) Mean Corpuscular Hemoglobin Concent 34 g/dL (31-37) Red Cell Distribution Width 14.6 % (11.5-14.5) Platelet Count 307 x10^3/uL (140-400) Neutrophils (%) (Auto) 55 % (31-73) Lymphocytes (%) (Auto) 35 % (24-48) Monocytes (%) (Auto) 6 % (0-9) Eosinophils (%) (Auto) 3 % (0-3) Basophils (%) (Auto) 1 % (0-3) Neutrophils # (Auto) 4.1 x10^3/uL (1.8-7.7) Lymphocytes # (Auto) 2.7 x10^3/uL (1.0-4.8) Monocytes # (Auto) 0.5 x10^3/uL (0.0-1.1) Eosinophils # (Auto) 0.3 x10^3/uL (0.0-0.7) Basophils # (Auto) 0.0 x10^3/uL (0.0-0.2) Sodium Level 142 mmol/L (136-145) Potassium Level 4.1 mmol/L (3.5-5.1) Chloride Level 105 mmol/L (98-107) Carbon Dioxide Level 26 mmol/L (21-32) Anion Gap 11 (6-14) Blood Urea Nitrogen 12 mg/dL (7-20) Creatinine 0.7 mg/dL (0.6-1.0) Estimated GFR (Cockcroft-Gault) 106.7 BUN/Creatinine Ratio 17 (6-20) Glucose Level 83 mg/dL (70-99) Calcium Level 9.0 mg/dL (8.5-10.1) Total Bilirubin 0.2 mg/dL (0.2-1.0) Aspartate Amino Transf (AST/SGOT) 23 U/L (15-37) Alanine Aminotransferase (ALT/SGPT) 32 U/L (14-59) Alkaline Phosphatase 147 U/L (46-116) Total Protein 7.8 g/dL (6.4-8.2) Albumin 3.1 g/dL (3.4-5.0) Albumin/Globulin Ratio 0.7 (1.0-1.7) Laboratory Tests Test 08/04/19 10:33 White Blood Count 7.5 x10^3/uL (4.0-11.0) Red Blood Count 4.46 x10^6/uL (3.50-5.40) Hemoglobin 12.4 g/dL (12.0-15.5) Hematocrit 36.6 % (36.0-47.0) Mean Corpuscular Volume 82 fL (79-100) Mean Corpuscular Hemoglobin 28 pg (25-35) Mean Corpuscular Hemoglobin Concent 34 g/dL (31-37) Red Cell Distribution Width 14.6 % (11.5-14.5) Platelet Count 307 x10^3/uL (140-400) Neutrophils (%) (Auto) 55 % (31-73) Lymphocytes (%) (Auto) 35 % (24-48) Monocytes (%) (Auto) 6 % (0-9) Eosinophils (%) (Auto) 3 % (0-3) Basophils (%) (Auto) 1 % (0-3) Neutrophils # (Auto) 4.1 x10^3/uL (1.8-7.7) Lymphocytes # (Auto) 2.7 x10^3/uL (1.0-4.8) Monocytes # (Auto) 0.5 x10^3/uL (0.0-1.1) Eosinophils # (Auto) 0.3 x10^3/uL (0.0-0.7) Basophils # (Auto) 0.0 x10^3/uL (0.0-0.2) Sodium Level 142 mmol/L (136-145) Potassium Level 4.1 mmol/L (3.5-5.1) Chloride Level 105 mmol/L (98-107) Carbon Dioxide Level 26 mmol/L (21-32) Anion Gap 11 (6-14) Blood Urea Nitrogen 12 mg/dL (7-20) Creatinine 0.7 mg/dL (0.6-1.0) Estimated GFR (Cockcroft-Gault) 106.7 BUN/Creatinine Ratio 17 (6-20) Glucose Level 83 mg/dL (70-99) Calcium Level 9.0 mg/dL (8.5-10.1) Total Bilirubin 0.2 mg/dL (0.2-1.0) Aspartate Amino Transf (AST/SGOT) 23 U/L (15-37) Alanine Aminotransferase (ALT/SGPT) 32 U/L (14-59) Alkaline Phosphatase 147 U/L (46-116) Total Protein 7.8 g/dL (6.4-8.2) Albumin 3.1 g/dL (3.4-5.0) Albumin/Globulin Ratio 0.7 (1.0-1.7) PIEDAD GONZALES MD Aug 04, 2019 11:35
[2019-08-04] MEDS ORDERED: ONDANSETRON PF 4 MG/2 ML VIAL. ONE (11:48)
[2019-08-04] MEDS ORDERED: DEXAMETHASONE SOD PHOS 4 MG/ML VIAL ONE (11:48)
[2019-08-04] MEDS ORDERED: DESFLURANE 61 TO 120 MINUTES IH ONE (11:48)
[2019-08-04] MEDS ORDERED: ePHEDrine PF IN SALINE 50 MG/10 ML SYRINGE. IV ONE (11:58)
[2019-08-04] MEDS ORDERED: NEOSTIGMINE 10 MG/10 ML VIAL. ONE (12:19)
[2019-08-04] MEDS ORDERED: GLYCOPYRROLATE 1 MG/5 ML VIAL. ONE (12:19)
--- NOTE | 2019-08-04 13:57 | RAD ---
CHOLANGIOGRAM INTRAOPERATIVE Clinical Indication: Cholecystectomy. Comparison: None. Findings: Total fluoroscopy time 0.3 minutes. 3 fluoroscopic spot images. Contrast injection of cystic duct remnant. Opacification of the biliary tree. Spillage of contrast into the duodenum. Common bile duct is well contrast opacified. There is no filling defect. IMPRESSION: No choledocholithiasis is seen. Electronically signed by: Abdi Pablo MD (08/04/2019 1:53 PM) [id number]
[2019-08-04] MEDS ORDERED: KETOROLAC 30 MG/ML VIAL. ONE (14:57)
--- NOTE | 2019-08-04 15:00 | DISCH ---
DISCHARGE INSTRUCTIONS Condition on Discharge Condition on Discharge: Stable Activity After Discharge Activity Instructions for Disc: Other, see below Other activity instructions: no strenuous activity Diet after Discharge Additional Diet Restrictions: clear liquids for 24 hours the as tolerated Wound Incision Care Wound/Incision Care: Other, see below Other wound/incision instructi: May shower. Leave dressings on as long as they are n tact then change prn. Checks after Discharge DC Comment: Norma matute when OOB and loose or off when in bed Follow-Up Follow up with: call and make appointment to see me in 2 weeks..... PIEDAD GONZALES MD Aug 04, 2019 15:00
[2019-08-04] MEDS ORDERED: KETOROLAC 30 MG/ML VIAL. IV ONE (15:30)
[2019-08-04] MEDS ORDERED: HYDR-2765 PO (15:45)
[2019-08-04] MEDS ORDERED: HYDROcodone/APAP 7.5/325MG 1 TAB TABLET PO ONE (16:15)
[2019-08-04] MEDS ORDERED: oxyCODONE/APAP 7.5/325 1 TAB TABLET PO ONE (16:15)
[2019-08-04 16:29] VITALS: BP 137/67
--- NOTE | 2019-08-06 14:04 | OP ---
DATE OF SURGERY: SURGEON: Aldo Gonzales MD PREOPERATIVE DIAGNOSES: Chronic cholecystitis and cholelithiasis. POSTOPERATIVE DIAGNOSES: Chronic cholecystitis and cholelithiasis. ANESTHESIA: General. PROCEDURE: Laparoscopic cholecystectomy with intraoperative cholangiogram. TECHNIQUE: Under general anesthesia, the patient was properly prepped and draped in routine fashion. She had not had surgery before and as such, a small incision was made in the infraumbilical area, carried down through the skin with a 15 blade. We then pulled up on either side with towel clips and passed a Veress needle into the peritoneal cavity. We instilled about 2-3 mL of saline, let it flow by gravity into the abdomen. We then insufflated the abdomen with CO2 up to 15 and then, passed the 11 mm trocar. We then placed a 10 mm camera and we were able to identify the liver, could not see the gallbladder as the tissue was over it. We then placed a 5 mm trocar in the epigastrium just to the right of the falciform ligament and then, a 5 mm trocar in a right upper quadrant about a couple of inches below the costal margin and then one laterally. These were all done under direct visualization, making certain not to injure any intra-abdominal contents. The patient was placed in reverse Trendelenburg left side down and we pushed the tissue away. Luckily, we could see the gallbladder. We grasped the gallbladder with the lateral grasper, pushed it up toward the right shoulder. There were some adhesions that had to be pulled away and the gallbladder appeared to be folded on itself. There was just a little reaction around the hilum, but it was just anatomical variation. The ampulla was grasped with the right upper quadrant grasper, pulled up, and we slowly identified the cystic duct. We identified this, appeared to have some stones in it, went around it, and actually after we got around it, we clipped the gallbladder, the cystic duct on the gallbladder side with 2 clips. We then made an incision in the cystic duct close to the clips, close to the gallbladder, and then, the stones that were there, we slowly milked them back. There did not appear to be any stones going into the cystic duct further than what we saw we could see whether it stopped, we could simply milk these back. These were aspirated out. After we thought we had actually got all the stones out, we identified the area, placed through a needle, the catheter with Hypaque with the dye in it and then placed a catheter in the cystic duct, clipped it and placed and got cholangiogram. The cholangiogram were initially, hence we were looking at the distal common duct and could not see the tapering. We then got more films as we injected more dye and then changed the angle of the x-ray equipment and we could see the tapering and no stones in the cystic duct. Dye flowed freely into the duodenum on all occasions and at the hilum. The hepatic radicles looked normal. We confirmed this with the radiologist. As such, the clip was removed and catheter was removed and then, we clipped the cystic duct 3 times with clips and divided it. We then identified the cystic artery, clipped in the area, twice on the patient's side and once on the gallbladder side and divided this. The gallbladder was then removed, it was somewhat difficult as it was probably folded on itself, but we did, we were able to simply divide the peritoneum and the attachments and shelled it out of gallbladder fossa using Harmonic scalpel. Before we completely removed this, we identified the hilum. There was no bile leak, no bleeding, and no abnormalities. The gallbladder was then completely amputated from the patient and then, placed a 5 mm camera in the epigastric port. We placed the EndoCatch basket through the umbilical port, placed it into the abdomen with the gallbladder in it and fired it and then, we were able to pull it up and luckily the gallbladder came out without dividing the peritoneal fascia. The gallbladder was totally removed and then, proceeded to close the small opening in the infraumbilical area in the fascia. We used #1 Prolene for this, 2 sutures to close the fascia there. We then after tying these, insufflated the abdomen. There was no leak and there was nothing attached to the surgical site and no intraabdominal contents had been sutured or caught within the sutures. We then inspected the area in one or two occasions, we saw some of the stones that had come out. We aspirated all the stones that we had not done before. The procedure was now terminated as there was no bleeding. Some of the blood from the lateral portion of the liver was aspirated and then we aspirated all of the CO2 and removed the trocars, camera, and all equipment. The resultant wounds were irrigated with saline and the subcutaneous was approximated using 4-0 Vicryl in all locations, 5-0 subcuticular Vicryl was used to close the skin. Tegaderm dressings were applied and the procedure was terminated. ESTIMATED BLOOD LOSS: Probably 10-15 mL. FLUIDS GIVEN: Can be obtained from the anesthesia sheet. DRAINS: No drains were used. CONDITION OF THE PATIENT: Satisfactory as she has returned to the recovery room. ALDO GONZALES MD DR: MELISSA/ronak JOB#: [id number] / [id number]
--- NOTE | 2019-08-08 18:06 | PATHOLOGY ---
[facility] Accession Number: [id number] . 01 Material submitted: . gallbladder - GALLBLADDER AND CONTENTS . 01 Clinical history: . Chronic Cholecystitis, cholelithiasis . 02 Diagnosis: Gallbladder, laparoscopic cholecystectomy: - Cholelithiasis. - Cholesterolosis. - Chronic cholecystitis. [facility] 08/08/2019 1555 Local . 02 Comment: There is no evidence of malignancy. (JPM/db; 08/08/2019) . 02 Electronically signed: . Benedicto Jc MD, Pathologist NPI- [id number] . 01 Gross description: . The specimen is received in formalin, labeled "Chelsie Ortiz, gallbladder and contents", is a partially collapsed gallbladder measuring 5.7 cm in length and 3.0 cm in maximum diameter with a glistening predominantly junior-green serosa. The cystic duct is impacted by calculi and is dilated. The gallbladder lumen contains viscous dark green bile and multiple yellow irregular to bosselated calculi measuring 1.0 x 1.0 x 0.5 cm in aggregate. The mucosa is pérez-green with cholesterolosis. The wall is 0.1 cm in average thickness. Representatively submitted in A1. ([facility]; 08/07/2019) [facility] 08/07/2019 2047 Local . 02 Pathologist provided ICD-10: K80.10, K82.4 . 02 CPT . 299077 Specimen Comment: A courtesy copy of this report has been sent to Specimen Comment: [phone]. Specimen Comment: Report sent to Performed at: [address], [place], [place] [id number] MD Demarco Felix MD Phone: [phone] Performed at: 02 [facility] [address] [place], [place] [id number] MD Benedicto Jc MD Phone: [phone]
== END 2019-08-04 17:01 | disposition home or self-care (01) ==
LOC: SURG 09:40
PROVIDERS: ATTEND Specialist
DX: K80.10 Calculus of gallbladder with chronic cholecystitis without obstruction (principal)
CPT/HCPCS: 36415; 47563; 74300; 80053; 85025; 85610; 88304; A7015; J0171; J0330; J0690; J0780; J1100; J1885; J2001; J2405; J2704; J2710; J3010; J3490; J7030; J7120; Q9967; J2270

== ENCOUNTER → 2019-08-07 | Outpatient (CLI) | payer OTHER ==
[2019-08-04 16:29] VITALS: BP 137/67
[~2019-08-07] MED LIST changes: -BUPIVACAINE-EPI 0.5%-1:200000 MPF 30 ML VIAL. INJ ONE; +HYDR-2765 PO; -HYDROmorphone 2 MG/ML VIAL IV PRN; -LIDOCAINE 1% PF 2 ML VIAL. ID PRN; -MORPHINE SULFATE 2 MG/ML VIAL. IV PRN; -ONDANSETRON PF 4 MG/2 ML VIAL. IV PRN; -PROCHLORPERAZINE 10 MG/2 ML VIAL. IV PRN; -fentaNYL PF VIAL 100 MCG/2 ML VIAL IV PRN
[2019-08-07 11:01] LABS: ALBUMIN 3.3 g/dL (3.4-5.0); ALBUMIN/GLOBULIN RATIO 0.7 (1.0-1.7); CALCIUM 9.4 mg/dL (8.5-10.1); CREATININE 0.7 mg/dL (0.6-1.0); GFR 106.7; TOTAL BILIRUBIN 0.3 mg/dL (0.2-1.0)
== END | disposition home or self-care (01) ==
LOC: LAB 10:06
PROVIDERS: ATTEND Specialist
DX: K80.80 Other cholelithiasis without obstruction (principal)
CPT/HCPCS: 36415; 80053